=== PATIENT | male | born 1980 | race Caucasian/White ===

== ENCOUNTER 2019-10-31 11:35 | Emergency (ER) | payer SELFPAY ==
[~2019-10-31] VITALS: Ht 167.6 cm; Wt 110.0 kg
--- NOTE | 2019-10-31 12:01 | EKG ---
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
--- NOTE | 2019-10-31 14:56 | PHYS DOC ---
Past Medical History Past Medical History: No Pertinent History ([employer]) Past Surgical History: Other Additional Past Surgical Histo: Jaw surgery ([employer] PSYCH[employer]IST) Smoking Status: Current Every Day Smoker Alcohol Use: Heavy Drug Use: Marijuana ([employer] PSYCH[employer]IST) General Adult EDM: Chief Complaint: CHEST PAIN-NON CARDIAC NATURE HPI: HPI: Patient is a 39 year old male who presents with left chest pain is been going on intermittently for the last month with shortness of air. States nothing makes it worse or better. He states that it feels like somebody is poking him when it happens. He states that it will last for seconds and then go away. States it does not radiate and stays in the left chest area. States he has been diagnosed with hypertension and he is a heavy smoker. He states he is not taking any hypertensive medications. Patient also complains of a right lower inguinal hernia that he would like for to be repaired that he has had for months. He states that he is not having abdominal pain, nausea, vomiting, diarrhea, constipation or abdominal distention. He states that it bothers him during sexual intercourse. He states he does not have pain in the area. The right lower inguinal hernia is soft and cannot be felt at this time and there is no pain or tenderness with palpation. He denies having any problems urinating. He states that it will come in and out on its own. Patient is educated that he will be referred to a general surgeon for this. Patient also complains of a rig ht flank baseball area sized light pink spot that is been there for over a month. He denies any injury or bruising to the area. He denies any pain to the area. There is no tenderness with palpation. Patient is currently having no chest pain. He took a baby aspirin this morning at home. He states that his dad and grandfather both have CHF in the past and diabetes. ([employer] PSYCH[employer]IST) Review of Systems: Review of Systems: Constitutional: Denies fever or chills. [] Eyes: Denies change in visual acuity. [] HENT: Denies nasal congestion or sore throat. [] Respiratory: Denies cough. + shortness of breath. [] Cardiovascular: chest pain or denies edema. [] GI: Denies abdominal pain, nausea, vomiting, bloody stools or diarrhea. Right inguinal hernia [] : Denies dysuria. [] Musculoskeletal: Denies back pain or joint pain. [] Integument: Denies rash. Right flank baseball sized pink area to skin [] Neurologic: Denies headache, focal weakness or sensory changes. [] Endocrine: Denies polyuria or polydipsia. [] Lymphatic: Denies swollen glands. [] Psychiatric: Denies depression or anxiety. [] [facility] Heart Score: HEART Score for Chest Pain: HEART Score for Chest Pain Response (Comments) Value History Slighlty/Non-Suspicious 0 ECG Normal 0 Age < 45 0 Risk Factors >3 Risk Factors or Hx CAD 2 Troponin < Normal Limit 0 Total 2 Risk Factors: Risk Factors: DM, Current or recent (<one month) smoker, HTN, HLP, family history of CAD, obesity. Risk Scores: Score 0 - 3: 2.5% MACE over next 6 weeks - Discharge Home Score 4 - 6: 20.3% MACE over next 6 weeks - Admit for Clinical Observation Score 7 - 10: 72.7% MACE over next 6 weeks - Early Invasive Strategies ([facility]) Allergies: Allergies: Allergies Coded Allergies Type Severity Reaction Last Updated Verified No Known Drug Allergies 12/20/14 No ([facility] Physical Exam: PE: Constitutional: Well developed, well nourished, no acute distress, non-toxic appearance. [] HENT: Normocephalic, atraumatic, bilateral external ears normal, oropharynx moist, no oral exudates, nose normal. [] Eyes: PERRLA, EOMI, conjunctiva normal, no discharge. [] Neck: Normal range of motion, no tenderness, supple, no stridor. [] Cardiovascular:Heart rate regular rhythm, no murmur [] Lungs & Thorax: Bilateral breath sounds clear to auscultation [] Abdomen: Bowel sounds normal, soft, no tenderness, no masses, no pulsatile masses. [] Skin: Warm, dry, no erythema, no rash. Right flank baseball sized light pink area to skin. [] Back: No tenderness, no CVA tenderness. [] Extremities: No tenderness, no cyanosis, no clubbing, ROM intact, no edema. [] Neurologic: Alert and oriented X 3, normal motor function, normal sensory function, no focal deficits noted. [] Psychologic: Affect normal, judgement normal, mood normal. [] (PAULA CONTRERAS APRN) EKG: EK and read by Dr. Almaguer as sinus rhythm and no STEMI. [] (PAULA CONTRERAS APRN) Radiology/Procedures: Radiology/Procedures: [] Impression: [facility] [address] [place] [address] IMAGING REPORT Signed PATIENT: ANTOLIN HAMILTON SACCOUNT: [id number] : 1980 LOCATION: ER AGE: 39 SEX: M EXAM STATUS: REG ER ORD. PHYSICIAN: PAULA CONTRERAS APRN REASON: chest pain PROCEDURE: PORTABLE CHEST 1V INDICATION: Reason: chest pain / Spl. Instructions: / History: COMPARISON: November 2010 FINDINGS: Single view of chest obtained. Similar appearance the chest compared to prior without a definite new region of consolidation. Cardiac silhouette is similar to prior IMPRESSION: * Similar exam compared to prior without a definite new region of consolidation. Electronically signed by: Mohini Cherry MD (10/31/2019 3:58 PM) [id number] DICTATED and SIGNED BY: MOHINI CHERRY MD DATE: 10/31/19 1558 (PAULA CONTRERAS APRN) Course & Med Decision Making: Course & Med Decision Making Pertinent Labs and Imaging studies reviewed. (See chart for details) See HPI. Abdomen is soft and nontender. Ambulatory with a steady gait. Speaks in full clear sentences. Lungs are clear to auscultation all lobes. No CVA tenderness. No lower extremity swelling. Alert and oriented x4. Skin pink warm and dry. EKG, blood work and chest x-ray show no acute findings. Patient is to follow-up with a primary care physician soon as possible. I have spoken to Dr. Almaguer concerning patient findings and patient care plan. [] (PAULA CONTRERAS APRN) Dragon Disclaimer: Dragon Disclaimer: This electronic medical record was generated, in whole or in part, using a voice recognition dictation system. (PAULA CONTRERAS APRN) Departure Departure Impression: Primary Impression: Nonspecific chest pain Disposition: HOME, SELF-CARE Condition: STABLE Referrals: NO PCP (PCP) LILY RAMIREZ MD Patient Instructions: Chest Pain (Nonspecific), Smoking Cessation, Tips For Success Additional Instructions: Follow-up with your primary care physician soon as possible. I have also referred you to a loan collector. You need to be on blood pressure medications. Stop smoking if possible. 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 I was available for consultation as needed at all times during the patient's visit in the emergency department. I agree with the clinical impression, plan and disposition. (MARVEL ALMAGUER DO) PAULA CONTRERAS APRN Oct 31, 2019 14:56 MARVEL ALMAGUER DO Nov 02, 2019 09:18
[2019-10-31] MEDS ORDERED: ASPIRIN 325 MG TABLET PO ONE (15:00)
[2019-10-31 15:13] LABS: BASO # 0.1 x10^3/uL (0.0-0.2); BASO % 1 % (0-3); EOS # 0.1 x10^3/uL (0.0-0.7); EOS % 1 % (0-3); HEMATOCRIT 45.5 % (39.0-53.0); HEMOGLOBIN 15.8 g/dL (13.0-17.5); LYMPH # 1.5 x10^3/uL (1.0-4.8); LYMPH % 18 % (24-48); MEAN CORPUSCULAR HEMOGLOBIN 33 pg (25-35); MEAN CORPUSCULAR HGB CONC 35 g/dL (31-37); MEAN CORPUSCULAR VOLUME 96 fL (79-100); MONO # 0.6 x10^3/uL (0.0-1.1); MONO % 8 % (0-9); NEUT # 6.1 x10^3/uL (1.8-7.7); NEUT % 72 % (31-73); PLATELET COUNT 267 x10^3/uL (140-400); RED BLOOD COUNT 4.74 x10^6/uL (4.30-5.70); RED CELL DISTRIBUTION WIDTH 13.3 % (11.5-14.5); WHITE BLOOD COUNT 8.4 x10^3/uL (4.0-11.0)
[2019-10-31 15:22] LABS: PROTHROMBIN TIME PATIENT 12.2 SEC (11.7-14.0)
[2019-10-31 15:42] LABS: ALBUMIN 3.5 g/dL (3.4-5.0); ALBUMIN/GLOBULIN RATIO 0.9 (1.0-1.7); GFR 83.6; POTASSIUM 3.9 mmol/L (3.5-5.1); TOTAL BILIRUBIN 0.5 mg/dL (0.2-1.0); TOTAL PROTEIN 7.3 g/dL (6.4-8.2)
[2019-10-31 15:50] LABS: CALCIUM 8.5 mg/dL (8.5-10.1)
--- NOTE | 2019-10-31 16:08 | RAD ---
INDICATION: Reason: chest pain / Spl. Instructions: / History: COMPARISON: November 2010 FINDINGS: Single view of chest obtained. Similar appearance the chest compared to prior without a definite new region of consolidation. Cardiac silhouette is similar to prior IMPRESSION: * Similar exam compared to prior without a definite new region of consolidation. Electronically signed by: Adin Flores MD (10/31/2019 3:58 PM) [id number]
[2019-10-31 16:20] LABS: BILIRUBIN,URINE NEGATIVE (NEG); CLARITY,URINE CLEAR; COLOR,URINE YELLOW; NITRITE,URINE NEGATIVE (NEG); PROTEIN,URINE NEGATIVE (NEG-TRACE); UROBILINOGEN,URINE 0.2 mg/dL (0.2 mg/dL)
[2019-10-31 16:25] LABS: BARBITURATES NEG (NEG); BENZODIAZEPINES NEG (NEG); CANNABINOIDS POS (NEG); COCAINE NEG (NEG); METHADONE NEG (NEG); OPIATES NEG (NEG); PHENCYCLIDINE NEG (NEG)
[2019-10-31 16:30] LABS: SQUAMOUS EPITHELIAL CELL,UR FEW /LPF
[2019-10-31 16:31] LABS: BACTERIA,URINE 0 /HPF (0-FEW); RBC,URINE 0 /HPF (0-2); WBC,URINE 0 /HPF (0-4)
[2019-10-31 16:39] LABS: AMPHETAMINE/METHAMPHETAMINE NEG (NEG)
[2019-10-31] MEDS ORDERED: ALBU2.5V8 INH (16:49)
[2019-10-31] MEDS ORDERED: METH4TAB2 PO (16:49)
[2019-10-31 16:50] VITALS: BP 171/112
== END 2019-10-31 17:10 | disposition home or self-care (01) ==
LOC: ER 11:35
DX: R07.89 Other chest pain (principal); R06.02 Shortness of breath; K40.90 Unilateral inguinal hernia, without obstruction or gangrene, not specified as recurrent; I10 Essential (primary) hypertension; F10.20 Alcohol dependence, uncomplicated; Y90.9 Presence of alcohol in blood, level not specified; F17.200 Nicotine dependence, unspecified, uncomplicated
CPT/HCPCS: 36415; 71045; 80053; 80307; 81001; 83690; 83880; 84484; 85025; 85610; 93005; 99285-25

== ENCOUNTER 2020-01-19 11:02 | Emergency (ER) | payer SELFPAY ==
[~2020-01-19] VITALS: Ht 167.6 cm; Wt 100.0 kg
[~2020-01-19 11:02] MED LIST: ALBU2.5V8 INH; METH4TAB2 PO
[2020-01-19 11:05] VITALS: BP 165/106
[2020-01-19] MEDS ORDERED: FLUORESCEIN OPHTH TEST STRIP. ONE (11:14)
[2020-01-19] MEDS ORDERED: TETRACAINE 0.5% OPHTH SOLUTION 4ML BOTTLE. ONE (11:14)
[2020-01-19] MEDS ORDERED: AMOX1TAB61 PO (11:36)
[2020-01-19] MEDS ORDERED: ERYT1OIN6 OP (11:36)
--- NOTE | 2020-01-19 11:37 | PHYS DOC ---
Past Medical History Past Medical History: Hypertension, Other Additional Past Medical Histor: R INGUINAL HERNIA, IBS Past Surgical History: Other Additional Past Surgical Histo: Jaw surgery Smoking Status: Current Every Day Smoker Alcohol Use: Heavy Drug Use: Marijuana General Adult EDM: Chief Complaint: EYE PROBLEMS HPI: HPI: Patient is a 40 year old male patient who presents to the ED today complaining of cat scratch in the right eye that occurred yesterday from his domestic cat, cat not up to date with its shots due to money. Patient denies any vision loss. Review of Systems: Review of Systems: Constitutional: Denies fever or chills. [] Eyes: Reports cat scratch to the right eye. Denies change in visual acuity. [] Musculoskeletal: Denies back pain or joint pain. [] Integument: Denies rash. [] Neurologic: Denies headache, focal weakness or sensory changes. [] Psychiatric: Denies depression or anxiety. [] Heart Score: Risk Factors: Risk Factors: DM, Current or recent (<one month) smoker, HTN, HLP, family history of CAD, obesity. Risk Scores: Score 0 - 3: 2.5% MACE over next 6 weeks - Discharge Home Score 4 - 6: 20.3% MACE over next 6 weeks - Admit for Clinical Observation Score 7 - 10: 72.7% MACE over next 6 weeks - Early Invasive Strategies Current Medications: Current Medications Medications (Trade) Dose Ordered Sig/Sandra Start Time Stop Time Status Last Admin Dose Admin Fluorescein Sodium (Ful-Kathryn) 1 strip STK-MED ONCE 01/19/20 11:14 01/19/20 11:14 DC Tetracaine HCl (Tetracaine) 40 drop STK-MED ONCE 01/19/20 11:14 01/19/20 11:14 DC Allergies: Allergies: Allergies Coded Allergies Type Severity Reaction Last Updated Verified No Known Drug Allergies 12/20/14 No Physical Exam: PE: Constitutional: Well developed, well nourished, no acute distress, non-toxic appearance. [] HENT: Normocephalic, atraumatic, bilateral external ears normal, oropharynx moist, no oral exudates, nose normal. [] Eyes: PERRLA, EOMI, right conjunctive is moderately injected, right upper eyelid is erythematous. Yellow drainage noted from the right eye. Right eye under Gee lamp was noted with 2 scratches in the middle of the cornea. Neck: Normal range of motion, no tenderness, supple, no stridor. [] Cardiovascular:Heart rate regular rhythm, no murmur [] Lungs & Thorax: Bilateral breath sounds clear to auscultation [] Abdomen: Bowel sounds normal, soft, no tenderness, no masses, no pulsatile masses. [] Skin: Warm, dry, no erythema, no rash. [] Back: No tenderness, no CVA tenderness. [] Extremities: No tenderness, no cyanosis, no clubbing, ROM intact, no edema. [] Neurologic: Alert and oriented X 3, normal motor function, normal sensory function, no focal deficits noted. [] Psychologic: Affect normal, judgement normal, mood normal. [] EKG: EKG: [] Radiology/Procedures: Radiology/Procedures: [] Course & Med Decision Making: Course & Med Decision Making Pertinent Labs and Imaging studies reviewed. (See chart for details) This is a 40-year-old male patient presenting to the ED today with cat scratch to the right eye. Noted for corneal abrasion. Discharged with erythromycin and Augmentin. Tetanus updated. Follow-up with idea man and PCP in the course of next week Ivana Disclaimer: Ivana Disclaimer: This electronic medical record was generated, in whole or in part, using a voice recognition dictation system. Departure Departure Impression: Primary Impression: Cat scratch Disposition: 01 DC HOME SELF CARE/HOMELESS Condition: STABLE Referrals: NO PCP (PCP) JORDY SAUNDERS MD follow up in 1-2 weeks Patient Instructions: Cat Scratch Disease-Brief Additional Instructions: You have cat scratch to your right eye. Keep the area clean. Use the prescribed medications as ordered, ensure you complete your oral antibiotics. F ollow-up with idea man or your own doctor in 1 to 2 weeks Scripts Erythromycin Base (Erythromycin) 1 Gm Oint...g. 0.5 INCH OP Q4HRS W/A for 7 Days, #1 MISC Prov: JUAN COLON APRN 01/19/20 Amoxicillin/Potassium Clav (AUGMENTIN 875-125 TABLET) 1 Each Tablet 1 TAB PO BID for 10 Days, #20 TAB 0 Refills Prov: JUAN COLON APRN 01/19/20 JUAN COLON APRN Jan 19, 2020 11:37
[2020-01-19] MEDS ORDERED: DIPH,PERTUSS(ACELL),TET VAC/PF 0.5 ML SYRINGE. VAX IM ONE (11:45)
== END 2020-01-19 11:45 | disposition home or self-care (01) ==
LOC: ER 11:02
DX: S00.211A Abrasion of right eyelid and periocular area, initial encounter (principal); I10 Essential (primary) hypertension; K58.9 Irritable bowel syndrome, unspecified; F17.200 Nicotine dependence, unspecified, uncomplicated; F10.20 Alcohol dependence, uncomplicated; Y90.9 Presence of alcohol in blood, level not specified; W55.03XA Scratched by cat, initial encounter; Y93.89 Activity, other specified; Y92.89 Other specified places as the place of occurrence of the external cause; Y99.8 Other external cause status
CPT/HCPCS: 90471; 90715; 99283

== ENCOUNTER 2020-06-08 10:54 | Emergency (ER) | payer SELFPAY ==
[~2020-06-08] VITALS: Ht 170.2 cm; Wt 240.0 kg
[~2020-06-08 10:54] MED LIST changes: +AMOX1TAB61 PO; +ERYT1OIN6 OP
[2020-06-08 11:02] VITALS: BP 165/106
--- NOTE | 2020-06-08 11:21 | PHYS DOC ---
Past Medical History Past Medical History: Hypertension, Other Additional Past Medical Histor: R INGUINAL HERNIA, IBS Past Surgical History: Other Additional Past Surgical Histo: Jaw surgery Smoking Status: Current Every Day Smoker Alcohol Use: Heavy Drug Use: Marijuana General Adult EDM: Chief Complaint: KNEE INJURY HPI: HPI: Amrit is a 40-year-old hypertensive male who presents to the emergency room with left knee pain. At the time the pain occurred, he was getting out of bed for the day, and immediately felt pain in his left knee. He states that the pain is constant, but it is only periodically that he is unable to support his weight and feels like his knee "gives out". 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 The patient denies any history of blood clots, recent travel history, and does not note any prolonged periods of being sedentary. The pain is 5 out of 10, but 10 out of 10 when his knee is in flexion. Patient does not report an y palliative components. The pain does not radiate outside of his knee, but "shoots across from the inside of the knee to the outside". Review of Systems: Review of Systems: Constitutional: Denies fever or chills Eyes: Denies redness or eye pain HENT: Denies nasal congestion or sore throat Respiratory: Denies cough; reports chronic shortness of breath due to smoking Cardiovascular: Reports chronic bouts of chest pain over the past several years, denies any current chest pain GI: Denies abdominal pain, nausea, or vomiting : Denies dysuria or hematuria Musculoskeletal: Reports left knee pain Integument: Denies rash or skin lesions Neurologic: Denies headache, focal weakness or sensory changes Complete systems were reviewed and found to be within normal limits, except as documented in this note. Heart Score: Risk Factors: Risk Factors: DM, Current or recent (<one month) smoker, HTN, HLP, family history of CAD, obesity. Risk Scores: Score 0 - 3: 2.5% MACE over next 6 weeks - Discharge Home Score 4 - 6: 20.3% MACE over next 6 weeks - Admit for Clinical Observation Score 7 - 10: 72.7% MACE over next 6 weeks - Early Invasive Strategies Allergies: Allergies: Allergies Coded Allergies Type Severity Reaction Last Updated Verified No Known Drug Allergies 12/20/14 No Physical Exam: PE: Constitutional: Well developed, well nourished, no acute distress, non-toxic appearance HENT: Normocephalic, atraumatic Eyes: PERRL, EOMI, conjunctiva normal, no discharge Neck: Normal range of motion, no tenderness, supple Lungs & Thorax: No respiratory distress, equal chest rise and fall Abdomen: Soft, no tenderness Skin: Warm, dry, no erythema, no rash Back: No tenderness, no CVA tenderness Extremities: Pain with palpation of medial left knee, negative anterior and posterior drawer test, no varus or valgus laxity Neurologic: Alert and oriented X 3, normal motor function, normal sensory function, no focal deficits noted Psychologic: Affect normal, judgment normal EKG: EKG: [] Radiology/Procedures: Radiology/Procedures: PROCEDURE: KNEE LEFT 3V 3 views left knee HISTORY: Pain AP lateral oblique views Visualized osseous structures appear normal. IMPRESSION: No acute findings. Electronically signed by: Vaughn Costello III, MD (06/08/2020 12:13 PM) [facility] Course & Med Decision Making: Course & Med Decision Making Amrit is a 40-year-old male seen in the emergency room for acute onset left knee pain. He states the pain began this morning when he tried to get out of bed. On physical exam, the patient had no calf tenderness, popliteal region tenderness, redness on his knee. He has no history of blood clots, or increase shortness of breath. In addition, the patient had a negative anterior and posterior draw sign test. The patient had a negative Sal's test. An x-ray was ordered to make sure there was no bony abnormality, and none were noted on the x-ray. The patient was given instructions to ice his knee 20 minutes on, 20 minutes off. In addition, the patient was told to rest, elevate his leg, and use an Jose M bandage to apply compression. He was given a prescription for naproxen, and crutches. The patient was instructed to return to emergency room if the pain continued to worsen, he developed swelling, increased shortness of breath, or was unable to ambulate effectively enough to undergo activities of daily living. Patient stable for discharge with outpatient follow-up with PCP. Discussed findings and plan with patient, who acknowledges understanding and agreement. Ivana Disclaimer: Ivana Disclaimer: This electronic medical record was generated, in whole or in part, using a voice recognition dictation system. Splinting Splinting : Location: Left knee Pre-Made Type: JOSE M bandage Pre-Proc Neuro Vasc Exam: normal Post-Proc Neuro Vasc Exam: normal, unchanged from pre-exam Departure Departure Impression: Primary Impression: Knee pain, left Qualified Codes: M25.562 - Pain in left knee Disposition: DC HOME SELF CARE/HOMELESS Condition: STABLE Referrals: NO PCP (PCP) MARTHA AJ MD Patient Instructions: Crutch Use, Lumn-zf-Alzv, Knee Pain, Gftg-[id number], Knee Wraps (Elastic Bandage) and RICE Additional Instructions: ICE area of discomfort 20 min on, then leave off next 20 mins. Repeat several times daily as needed for next few days. Scripts Naproxen (NAPROXEN) 375 Mg Tablet 375 MG PO TID PRN for PAIN, #30 TAB Prov: MARVEL ALMAGUER DO 06/08/20 MARVEL ALMAGUER DO Jun 08, 2020 11:21
[2020-06-08] MEDS ORDERED: NAPROXEN 500 MG TABLET PO ONE (11:30)
--- NOTE | 2020-06-08 12:16 | RAD ---
3 views left knee HISTORY: Pain AP lateral oblique views Visualized osseous structures appear normal. IMPRESSION: No acute findings. Electronically signed by: Vaughn Costello III, MD (06/08/2020 12:13 PM) [facility]
[2020-06-08] MEDS ORDERED: NAPR-695 PO (12:25)
== END 2020-06-08 13:00 | disposition home or self-care (01) ==
LOC: ER 10:54
DX: M25.562 Pain in left knee (principal); R07.89 Other chest pain; I10 Essential (primary) hypertension; F17.200 Nicotine dependence, unspecified, uncomplicated; F12.90 Cannabis use, unspecified, uncomplicated; F10.10 Alcohol abuse, uncomplicated; Z98.890 Other specified postprocedural states
CPT/HCPCS: 73562; 99283